=== PATIENT | female | born 1975 | race Caucasian/White ===

== ENCOUNTER 2020-07-08 12:46 | Emergency (ER) | payer SELFPAY ==
[~2020-07-08 12:46] MED LIST: IBUPROFEN800 MG PO; MEDROL 4MG DOSEP4 MG PO
[2020-07-08 13:42] LABS: BILIRUBIN NEGATIVE (NEGATIVE); BLOOD NEGATIVE Ery/uL (NEGATIVE); CLARITY CLEAR (CLEAR); COLOR YELLOW (YELLOW); GLUCOSE (U) NORMAL (NORMAL); LEUKOCYTES NEGATIVE Leu/uL (NEGATIVE); NITRITE NEGATIVE (NEGATIVE); PROTEIN NEGATIVE (NEGATIVE); UROBILINOGEN 0.2 mg/dL (0.2-1.0)
[2020-07-08 14:04] LABS: BASOPHIL 0.7 % (0-2); EOSINOPHIL 1.6 % (0-5); HCT 43.3 % (37.0-47.0); HGB 14.6 g/dl (12.5-16.0); LYMPHOCYTE 29.4 % (15-48); MCH 30.7 pg (25.0-31.0); MCHC 33.7 g/dL (32.0-36.0); MONOCYTE 6.6 % (0-12); MPV 10.6 fL (6.0-9.5); NEUTROPHIL 61.4 % (41-80); NRBC 0; PLT 356 K/uL (150-400); RBC 4.76 M/uL (4.20-5.40); RDW 13.7 % (11.5-14.0); WBC 10.8 K/uL (4.0-10.5)
[2020-07-08 14:37] LABS: ALBUMIN 3.7 g/dL (3.4-5.0); BILIRUBIN - TOTAL 0.2 mg/dL (0.2-1.0); BUN/CREAT RATIO (CALC) 10.2 RATIO; CREATININE 0.98 mg/dL (0.51-0.95); GLOBULIN (CALCULATION) 3.9 g/dL; POTASSIUM 4.2 mmol/L (3.5-5.1); TOTAL PROTEIN 7.6 g/dL (6.4-8.2)
[2020-07-08] MEDS ORDERED: BENTYL10 MG PO (18:05)
[2020-07-08] MEDS ORDERED: ZOFRAN4 M1 PO (18:05)
== END 2020-07-08 18:39 | disposition home or self-care (01) ==
LOC: FER 12:46
PROVIDERS: Emergency Medicine
DX: R10.31 Right lower quadrant pain (principal); R11.0 Nausea; F17.210 Nicotine dependence, cigarettes, uncomplicated; Z98.890 Other specified postprocedural states; Z88.0 Allergy status to penicillin
CPT/HCPCS: 36415; 80053; 81003; 82150; 83690; 85025; J1885; J2405; J7030; Q9967

== ENCOUNTER 2021-02-20 13:28 | Emergency (ER) | payer SELFPAY ==
[~2021-02-20 13:28] MED LIST changes: +BENTYL10 MG PO; +ZOFRAN4 M1 PO
[2021-02-20 15:22] LABS: INFLUENZA A NAA NEGATIVE (NEGATIVE)
[2021-02-20 15:28] LABS: CORONAVIRUS 2019 SARS-COV-2 POSITIVE (NEGATIVE)
== END 2021-02-20 16:00 | disposition home or self-care (01) ==
LOC: FER 13:28
PROVIDERS: Internal Medicine
DX: U07.1 COVID-19 (principal); F17.200 Nicotine dependence, unspecified, uncomplicated; Z88.0 Allergy status to penicillin
CPT/HCPCS: 99283; U0002